=== PATIENT | female | born 1970 | race Caucasian/White ===

== ENCOUNTER 2017-02-14 10:47 | Outpatient (CLI) | payer OTHER ==
[~2017-02-14 10:47] MED LIST: BUPROPION HCL300 MG PO; IBUPROFEN400 MG PO; LISINOPRIL/HYDR1 TA1 PO; MIRENA; NORETHINDRONE0.35 MG PO; VICODIN EQUIVAL1 TAB PO
--- NOTE | 2017-02-14 12:37 | DIAGNOSTIC IMAGING REPORT ---
PROCEDURE: MG BILATERAL DIAGNOSTIC W/CAD INDICATION: 6-month follow-up, screening. TECHNIQUE: Standard CC and MLO views of each breast. Spot compression views in the CC and MLO projection. A direct lateral right mammogram was performed. CAD was used. The patient then went on to ultrasound where nance scale and color Doppler sonographic imaging of the right breast was performed. COMPARISON: 03/20/2016, 02/28/2016 FINDINGS: Mammograms: Mildly dense patchy fibroglandular tissue is present bilaterally. There is a microlobulated glandular density in the anterior 1 o'clock position of the right breast measuring about 12 mm in greatest diameter, stable in size and position compared to the previous study. No significant change with spot compression in the CC or MLO view. No other suspicious densities, areas of focal architectural distortion, or unusual microcalcifications in either breast. Ultrasound: There is an ovoid, well-defined/encapsulated, horizontally oriented microlobulated hypoechoic nodule in the 1 o'clock position of the right breast measuring 0.9 x 0.7 x 0.3 cm, stable in size and morphology compared to the prior study. With color Doppler imaging, no suspicious internal or peripheral vascularity. No suspicious shadowing. IMPRESSION: 1. Stable appearing 9 mm glandular nodule in the right breast, likely a benign fibroadenoma. No suspicious features. 2. The patient can resume yearly screening mammography. Findings and recommendations were discussed with the patient. RESULT CODE: 2- Benign findings.
== END 2017-02-14 23:00 ==
LOC: MAM SRH 10:47
DX: R92.8 Other abnormal and inconclusive findings on diagnostic imaging of breast (principal)